=== PATIENT | female | born 1965 | race Two or more races ===

== ENCOUNTER 2019-01-16 11:59 | Emergency (ER) | payer MEDICAID ==
[~2019-01-16] VITALS: Ht 162.6 cm; Wt 105.0 kg
[~2019-01-16 11:59] MED LIST: CLON0.1T PO; HYDR12.529 PO; IBUP-2029 PO; LORA1TAB PO
[2019-01-16] MEDS ORDERED: BACITRACIN ZINC OINT UDPKT TOP ONE (12:45)
[2019-01-16] MEDS ORDERED: TETANUS, DIPHTHERIA, PERTUSSIS VAC/PF 0.5ML (>7YR OLD) IM ONE (12:45)
[2019-01-16] MEDS ORDERED: IBUPROFEN 600MG TABLET PO ONE (12:45)
[2019-01-16] MEDS ORDERED: LIDOCAINE 1%/EPI 1:100,000 10 ML VIAL IJ ONE (12:45)
[2019-01-16] MEDS ORDERED: LIDOCAINE HCL/PF 1% 10 MG/ML 5ML VIAL IJ ONE (12:45)
[2019-01-16] MEDS ORDERED: HYDROCODONE/ACETAMINOPHEN 5/325MG TABLET PO ONE ×2 (12:45→14:15)
[2019-01-16] MEDS ORDERED: ACETAMINOPHEN 650MG/20.3ML UDC PO ONE (20:30)
[2019-01-17 11:30] VITALS: BP 122/71
[2019-01-17] MEDS ORDERED: ACETAMINOPHEN 325MG TABLET PO ONE (12:15)
== END 2019-01-17 14:22 | disposition left against medical advice (07) ==
LOC: ER 11:59
DX: S01.01XA Laceration without foreign body of scalp, initial encounter (principal); M25.512 Pain in left shoulder; I10 Essential (primary) hypertension; Y04.0XXA Assault by unarmed brawl or fight, initial encounter; Y93.89 Activity, other specified; Y92.9 Unspecified place or not applicable; Z88.8 Allergy status to other drugs, medicaments and biological substances
CPT/HCPCS: 12002; 70450; 70486; 73030; 73060; 90471; 90715; 99284; J3490